=== PATIENT | male | born 1980 | race Caucasian/White ===

== ENCOUNTER 2022-09-24 21:28 | Emergency (ER) | payer BC ==
[~2022-09-24] VITALS: Ht 180.3 cm; Wt 95.3 kg
== END 2022-09-25 02:56 | disposition home or self-care (01) ==
LOC: ER 21:28
DX: S61.217A Laceration without foreign body of left little finger without damage to nail, initial encounter (principal); W45.8XXA Other foreign body or object entering through skin, initial encounter; Y93.89 Activity, other specified; Y92.89 Other specified places as the place of occurrence of the external cause; Y99.9 Unspecified external cause status; R07.89 Other chest pain

== ENCOUNTER → 2024-11-05 | Emergency (ER) | payer BC ==
[~2024-11-05] VITALS: Ht 175.3 cm; Wt 90.7 kg
== END | disposition left against medical advice (07) ==
LOC: ER 15:50
DX: Z53.21 Procedure and treatment not carried out due to patient leaving prior to being seen by health care provider (principal)